=== PATIENT | female | born 1940 | race Asian ===

== ENCOUNTER 2017-08-21 20:36 | Observation (INO) | payer OTHER ==
[~2017-08-21] VITALS: Ht 160 cm; Wt 53.5 kg
[2017-08-21] MEDS ORDERED: RISPERIDONE0.25 MG PO (21:13)
[2017-08-21] MEDS ORDERED: RIVASTIGMINE1.5 MG PO (21:13)
[2017-08-21 21:37] LABS: APPEARANCE CLOUDY ((CLEAR)); BILIRUBIN NEGATIVE; BLOOD MODERATE; COLOR YELLOW ((YELLOW)); GLUCOSE (STRIP) 50; KETONES NEGATIVE; LEUKOCYTES NEGATIVE; NITRITE NEGATIVE; PROTEIN (STRIP) 100; SPECIFIC GRAVITY 1.012 (1.000-1.030); UROBILINOGEN 0.2 MG/DL (0.2-1.0)
[2017-08-21 21:37] LABS: ALBUMIN 3.3 g/dL (3.2-4.8); CHLORIDE 107 mEq/L (99-109); POTASSIUM 3.3 mEq/L (3.7-5.4); SODIUM 140 mEq/L (136-147)
[2017-08-21 21:38] LABS: BASOPHIL (%) 0.1 % (0-1); EOSINOPHIL (%) 0 % (0-5); GLUCOSE 176 mg/dL (70-99); HEMATOCRIT 39.9 % (36.0-46.0); HEMOGLOBIN 12.2 G/DL (11.9-15.5); IMMATURE GRANULOCYTE (%) 0.7 % (0.0-0.7); LYMPHOCYTE (%) 10.3 % (15-42); LYMPHOCYTE COUNT 1.2 K/uL (1.0-2.8); MCH 27.1 PG (29.0-34.0); MCHC 30.6 G/DL (30.0-36.0); MCV 88.5 FL (83-99); MONOCYTE (%) 7.4 % (3-12); MONOCYTE COUNT 0.9 K/uL (0-0.8); NEUTROPHIL (%) 81.5 % (45-76); NEUTROPHIL COUNT 9.3 K/uL (1.8-6.4); PLATELET COUNT 96 K/uL (156-360); RBC DIS.WIDTH-CV 14.2 % (11.8-14.6); RBC DIS.WIDTH-SD 45.7 % (39-53); RED BLOOD COUNT 4.51 M/uL (3.80-5.20); WHITE BLOOD COUNT 11.5 K/uL (4.1-10.2)
[2017-08-21 21:39] LABS: INTER. NORMALIZED RATIO 1.3; TOTAL PROTEIN 6.5 g/dL (6.4-8.3)
[2017-08-21 21:40] LABS: TOTAL BILIRUBIN 0.8 mg/dL (0.0-1.0)
[2017-08-21 21:41] LABS: PTT 33.2 SEC (25-37)
[2017-08-21 21:42] LABS: ALKALINE PHOSPHATASE 76 IU/L (3-129); CREATININE 1.3 mg/dL (0.6-1.3); GFR ESTIMATE (CALCULATED) 42 mL/min/
[2017-08-21 21:43] LABS: UREA NITROGEN (BUN) 15 mg/dL (9-23)
[2017-08-21 21:44] LABS: AST (GOT) 80 IU/L (2-34)
[2017-08-21 21:45] LABS: ALT (GPT) 84 IU/L (3-49)
[2017-08-21 21:46] LABS: LIPASE 38 U/L (1.0-51.0)
[2017-08-21 21:48] LABS: TROP-I INTERPRETATION POSITIVE
[2017-08-21 22:01] LABS: TROPONIN-I 3.49 ng/mL (0.0-0.30)
[2017-08-21 22:03] LABS: BACTERIA 2+ /HPF; EPITHELIAL CELLS RARE /HPF; MUCUS RARE /LPF; UCUL ADDED? YES
[2017-08-22 23:42] VITALS: BP 00/00
== END 2017-08-23 04:02 ==
LOC: EME 20:36 → EDOF 08-22 01:29 → ENRESERV 08-22 01:31 → 5EAST 08-22 02:20
PROVIDERS: Emergency Medicine
DX: I71.03 Dissection of thoracoabdominal aorta (principal); I71.02 Dissection of abdominal aorta; F03.90 Unspecified dementia, unspecified severity, without behavioral disturbance, psychotic disturbance, mood disturbance, and anxiety; G20 Parkinson's disease; Z86.19 Personal history of other infectious and parasitic diseases; Z66 Do not resuscitate; Z51.5 Encounter for palliative care; I21.4 Non-ST elevation (NSTEMI) myocardial infarction; I47.2 Ventricular tachycardia; R79.89 Other specified abnormal findings of blood chemistry; E87.2 Acidosis; I95.9 Hypotension, unspecified; R19.7 Diarrhea, unspecified
CPT/HCPCS: 36600; 70450; 71010; 71275; 74177; 80047; 80053; 81003; 82803; 83605; 83690; 84484; 85025; 85610; 85730; 87040; 87086; 93005; 99281; 99285; G0378; J2060; J2270; J2405; J2543